=== PATIENT | female | born 1995 | race Two or more races ===

== ENCOUNTER 2020-12-25 15:33 | Emergency (ER) | payer BC ==
[2020-12-25 15:41] VITALS: BP 116/73; PULSE 79; TEMP 97.9; BMI 27.3
[2020-12-25 18:17] LABS: BASO % 0.3 % (0-2.0); EOS % 1.9 % (0-4.5); HEMATOCRIT 38.8 % (32.4-45.2); HEMOGLOBIN 13.3 GM/dL (10.7-15.3); LYMPH % 21.9 % (8-40); MCH 30.9 pg (25.7-33.7); MCHC 34.4 g/dl (32.0-36.0); MEAN CELL VOLUME 89.8 fl (80-96); MEAN PLT VOLUME 7.4 fl (7.5-11.1); MONO % 5.4 % (3.8-10.2); NEUT % 70.5 % (42.8-82.8); PLATELET COUNT 252 10^3/uL (134-434); RBC 4.32 M/mm3 (3.60-5.2); RDW 14.1 % (11.6-15.6); WHITE BLOOD COUNT 11.1 K/mm3 (4.0-10.0)
[2020-12-25 18:43] LABS: ALBUMIN 3.8 g/dl (3.4-5.0); BLOOD UREA NITROGEN 6.5 mg/dL (7-18)
[2020-12-25 18:46] LABS: CREATININE 0.6 mg/dL (0.55-1.3)
[2020-12-25 18:48] LABS: BILIRUBIN,TOTAL 0.9 mg/dL (0.2-1); TOT PROT 7.6 g/dl (6.4-8.2)
[2020-12-25 19:46] LABS: EPI CELLS 23 /uL (0-25.1); HYALINE CASTS 2 /uL (0-3.1); URINE APPEARANCE CLOUDY; URINE BACTERIA 21 /uL (0-1359); URINE BILIRUBIN NEGATIVE (NEGATIVE); URINE COLOR RED; URINE GLUCOSE (UA) NEGATIVE (NEGATIVE); URINE KETONE 2+ (NEGATIVE); URINE LEUK ESTERASE 1+ (NEGATIVE); URINE NITRITE NEGATIVE (NEGATIVE); URINE PROTEIN 1+ (NEGATIVE); URINE RBC 11528 /uL (0-23.9); URINE UROBILINOGEN 0.2 mg/dL (0.2-1.0); URINE WBC 9 /uL (0-25.8)
== END 2020-12-25 20:30 | disposition home or self-care (01) ==
LOC: JER 15:33
DX: O26.851 Spotting complicating pregnancy, first trimester (principal); Z3A.08 8 weeks gestation of pregnancy
CPT/HCPCS: 36415; 76817-TC; 80053; 81003; 84702; 85025; 86850; 86900; 86901; 87086; 99284-25